=== PATIENT | male | born 1970 | race Hispanic/Latino ===

== ENCOUNTER 2018-10-12 20:25 | Emergency (ER) | payer MEDICAID ==
[2018-10-12] MEDS ORDERED: XYLOCAINE 1% MPF 5 mL INFILTRATI ONE (22:04)
--- NOTE | 2018-10-12 22:22 | Emergency Department Report ---
ED Laceration HPI - HPI Chief Complaint: Laceration/Recheck/Suture Stated Complaint: LEFT FINGER LAC Time Seen by Provider: 10/12/18 21:48 Occurred When: Today Location: Upper Extremity (left index finger) Severity: moderate (5/10) Tetanus Status: Up to Date Laceration Symptoms: Yes Pain (5/stent to left index finger), No Foreign Body Sensation, No Numbness, No Weakness Other History: This is a 48-year-old male who came to the emergency room with his friends reported that he accidentally cut the tip of his left index finger on a knife tonight. Patient came via ambulance to the hospital. He has a history of heart attack, hypertension, diabetes, cancer and his blood but he cannot have a what kind of cancer, cirrhosis of the liver stage IV, spinal abscess and surgical history of appendectomy and hemorrhoid surgery. Patient and still drinks alcohol per patient. He did not take any medication prior to coming to the emergency room he just said he drank some alcohol tonight obtained. Pain is worse with movements and better at rest. ED Review of Systems ROS: Stated complaint: LEFT FINGER LAC Other details as noted in HPI Constitutional: denies: chills Respiratory: denies: cough, shortness of breath, wheezing Cardiovascular: denies: chest pain, palpitations, edema, syncope Gastrointestinal: denies: abdominal pain, nausea, vomiting Musculoskeletal: arthralgia. denies: joint swelling, myalgia Skin: other (laceration to left index finger) Neurological: denies: headache, numbness, paresthesias, abnormal gait ED Past Medical Hx - Past Medical History Previous Medical History?: Yes Hx Hypertension: Yes Hx Heart Attack/AMI: Yes (x3) Hx Diabetes: Yes Hx Liver Disease: Yes (Cirrhosis Stage IV) Hx of Cancer: Yes (Sees a blood/cancer doctor) Hx COPD: Yes Additional medical history: Spinal abcess - Surgical History Past Surgical History?: Yes Hx Appendectomy: Yes Additional Surgical History: Hemorhoid - Family History Family history: hypertension - Social History Smoking Status: Current Every Day Smoker Substance Use Type: Alcohol - Medications Home Medications: Home Medications Medication Instructions Recorded Confirmed Last Taken Type cephALEXin [Keflex] 500 mg PO Q8HR 5 Days #15 cap 10/12/18 Unknown Rx Laceration Physical Exam - Exam General: Vital signs noted. No distress. Alert and acting appropriately. This is a 48-year-old male here well-nourished and in no acute distress. Wound Length (cm): 1 Laceration Location: Upper Extremity (left distal phalanx left index finger) Full Body Front + Back: 1 - Very superficial laceration to left distal phalanx of index finger. No bleeding noted at present. Tetanus vaccine is up-to-date. No bony tenderness. Irregular. Laceration Exam: Yes Normal Distal CMS (No cce. + 2 pulses in all extremities, no neurovascular compromise), No Foreign Body, No Exposed Tendon, Vessel, or Nerve, No Tendon Injury ED Course Vital Signs 10/12/18 10/12/18 20:28 20:38 Temperature 98.2 F 98.2 F Pulse Rate 90 90 Respiratory 18 18 Rate Blood Pressure 143/78 143/78 O2 Sat by Pulse 97 96 Oximetry - Reevaluation(s) Reevaluation #1: 10/12/18 22:59 Patient stable throughout ED course. Please see procedure note for details on laceration repair - Laceration /Wound Repair Left Distal Palm Finger Wound Location: upper extremity (left distal index finger at phalanx, palmar side) Wound Length (cm): 1 Wound's Depth, Shape: superficial, irregular Wound Explored: no foreign body removed Irrigated w/ Saline (ccs): 100 Betadine Prep?: Yes Volume Anesthetic (ccs): 0 Wound Debrided: moderate Wound Repaired With: Steri-strips, Dermabond Number of Sutures: 3 (Steri-Strips) Layer Closure?: No Sterile Dressing Applied?: Yes Progress: Dry bulky dressing placed by the patient told to remove dressing tomorrow night. He voices understanding ED Medical Decision Making - Medical Decision Making This is a 48-year-old male who accidentally cut his finger with his own knife this evening. He is reporting some pain and it was bleeding and he took ambulance to the hospital. Bleed in was able to be stopped with pressure dressing. Observe for half an hour without any bleeding in. Area cleansed extensively and soaked and laceration repaired. Please see procedure note for details. Patient said that his immunizations are up-to-date. Patient discharged home in stable condition to follow up with his primary care doctor and 2-3 days and I told him that Steri-Strips will fall off on their own. He voiced understanding and discharged home with his family in stable condition with prescription for Keflex. Critical care attestation.: If time is entered above; I have spent that time in minutes in the direct care of this critically ill patient, excluding procedure time. ED Disposition Clinical Impression: Finger laceration Qualifiers: Encounter type: initial encounter Finger: index finger Damage to nail status: without damage Foreign body presence: without foreign body Laterality: left Qualified Code(s): S61.211A - Laceration without foreign body of left index finger without damage to nail, initial encounter Disposition: TO HOME OR SELFCARE Is pt being admited?: No Does the pt Need Aspirin: No Condition: Stable Instructions: Finger Laceration (ED) Additional Instructions: Please keep affected area clean and dry Avoid taking Tylenol or aspirin, ibuprofen, Motrin, naproxen, Advil, Aleve as these are either toxic deliver or can cause bleeding. Follow-up with primary care physician in 2 days and if he do not have a primary care follow-up at [facility] or see primary care assigned. Referrals: AYUSH AGUIRRE [Other] - 10/15/18 [facility] [Outside] - 10/15/18 Forms: Accompanied Note, Work/School Release Form(ED)
[2018-10-13 14:41] VITALS: BP 136/86
== END 2018-10-12 23:14 | disposition home or self-care (01) ==
LOC: ED 20:25
DX: S61.211A Laceration without foreign body of left index finger without damage to nail, initial encounter (principal); I11.0 Hypertensive heart disease with heart failure; E11.9 Type 2 diabetes mellitus without complications; J44.9 Chronic obstructive pulmonary disease, unspecified; K74.60 Unspecified cirrhosis of liver; F17.200 Nicotine dependence, unspecified, uncomplicated; Z90.49 Acquired absence of other specified parts of digestive tract; W26.0XXA Contact with knife, initial encounter; Y93.89 Activity, other specified; Y92.89 Other specified places as the place of occurrence of the external cause; Y99.8 Other external cause status
CPT/HCPCS: 99283